=== PATIENT | female | born 1950 | race Caucasian/White ===

== ENCOUNTER → 2021-03-11 | Outpatient (CLI) | payer OTHER ==
[~2021-03-11] MED LIST: AMBIEN 5 MG TABL5 M1 PO; CLARITIN10 MG PO; FISH OIL 1,0001 EAC5 PO; HORMONE REPLACEMENT PO; IBUPROFEN 200200 M1 PO; LEVOTHYROXIN0.125 M1 PO; RITALIN5 MG PO; VITAMIN D34000 UNIT PO; VITAMIN E400 UNI6 PO; VITAMINC500 PO; ZOLOFT 50 MG TA50 M1 PO
== END ==
LOC: SJCVC 10:44
PROVIDERS: ATTEND Internal Medicine
DX: R00.1 Bradycardia, unspecified (principal); R07.2 Precordial pain; R06.00 Dyspnea, unspecified; E78.5 Hyperlipidemia, unspecified; E03.9 Hypothyroidism, unspecified; Z90.49 Acquired absence of other specified parts of digestive tract; Z88.2 Allergy status to sulfonamides; Z88.8 Allergy status to other drugs, medicaments and biological substances; Z79.899 Other long term (current) drug therapy; Z87.891 Personal history of nicotine dependence

== ENCOUNTER → 2021-03-19 | Outpatient (CLI) | payer OTHER | LOC: SJCVCIMAG 11:59 | PROVIDERS: ATTEND Internal Medicine | DX: R00.0 Tachycardia, unspecified (principal); R06.00 Dyspnea, unspecified; E78.5 Hyperlipidemia, unspecified; Z79.899 Other long term (current) drug therapy ==